=== PATIENT | female | born 1955 | race Caucasian/White ===

== ENCOUNTER 2020-09-09 21:51 | Emergency (ER) | payer MEDICARE ==
[2020-09-09] MEDS ORDERED: Bacitracin Oint 1 GM U/D Packet TOP ONE (22:03)
[2020-09-09] MEDS ORDERED: Lidocaine 1% 20 ML MDV INJECT ONE (22:03)
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
== END 2020-09-09 22:46 | disposition home or self-care (01) ==
LOC: JP.ED 21:51
DX: S71.111A Laceration without foreign body, right thigh, initial encounter (principal); W22.8XXA Striking against or struck by other objects, initial encounter
CPT/HCPCS: 12002; 99282-25; J2001